=== PATIENT | female | born 1965 | race Caucasian/White ===

== ENCOUNTER 2024-10-22 08:44 | Day surgery (SDC) | payer OTHER, SELFPAY ==
[2024-10-05 10:33] VITALS: BMI 28.1
[2024-10-05 11:00] LABS: % Basophils 0.5 % (0-2); % Eosinophils 5.4 % (0-6); % Immature Granulocytes 0.2 % (0-0.5); % Lymphocytes 41.7 % (20.5-51.1); % Monocytes 10.9 % (1.7-9.3); % Neutrophils 41.3 % (42.2-75.2); Absolute Eosinophils 0.2 10^3/uL (0-0.7); Absolute Lymphocytes 1.7 10^3/uL (1.2-3.4); Absolute Monocytes 0.4 10^3/uL (0.1-0.6); Absolute Neutrophils 1.7 10^3/uL (1.4-6.5); Hemoglobin 13.7 g/dL (12.0-16.0); Mean Corp Hgb Conc. 33.4 g/dL (33.0-37.0); Mean Corpuscular Hgb 32.3 pg (27.0-31.0); Mean Corpuscular Volume 96.7 fL (81.0-99.0); Mean Platelet Volume 9.8 fL (7.4-10.4); Nucleated Red Blood Cells % 0 %; Platelet Count 212 10^3/uL (130-400); Red Blood Cell Count 4.24 10^6/uL (4.20-5.40); Red Cell Dist. Width 13.6 % (11.5-14.5); White Blood Cell Count 4.1 10^3/uL (4.8-10.8)
[2024-10-05 12:14] LABS: ALT (SGPT) 48 U/L (0-35); AST (SGOT) 38 U/L (14-36); Albumin 4.2 g/dl (3.5-5.0); Alkaline Phosphatase 73 U/L (38-126); Blood Urea Nitrogen 13 mg/dl (7-17); Calcium 9.1 mg/dl (8.4-10.2); Carbon Dioxide 28 mmol/L (22-30); Chloride 101 mmol/L (98-107); Estimated Creatinine Clearance 85 ml/min; Glucose 93 mg/dl (70-99); Magnesium 2.1 mg/dl (1.6-2.3); Potassium 5.3 mmol/L (3.5-5.1); Sodium 135 mmol/L (135-145); Total Bilirubin 0.6 mg/dl (0.2-1.3); Total Protein 7.2 g/dl (6.3-8.2); eGFR > 60.00
[2024-10-22] VITALS (14 sets, daily range): BP systolic 112–177; BP diastolic 71–95
[2024-10-22 12:45] LABS: ACT-LR - POC 207 Seconds (116-155)
[2024-10-22 13:04] LABS: ACT-LR - POC 316 Seconds (116-155)
[2024-10-22 13:34] LABS: ACT-LR - POC 347 Seconds (116-155)
[2024-10-22 13:45] LABS: ACT-LR - POC 147 Seconds (116-155)
--- NOTE | 2024-10-22 15:28 | ITS.CL.ABL ---
[facility] [employer] - Ablation
Ablation
Procedure Report:
Primary Physician: Erika Newton DO
Primary Oleomargarine Maker: Giles Lockhart MD
Procedure Date: 10/22/2024
Procedure
Electrophysiology Study with SVT ablation
Left atrial recording / pacing
IV drug for arrhythmia induction
Patient History
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
Patient noted to have SVT (appearing short RP tachycardia) on event monitor lasting roughly 1 hour with average heart rate 153 bpm, max 171 bpm.
Method
After informed consent was obtained, the patient was brought to the EP lab in a post-absorptive, non-sedated state. A peripheral IV was in place. Continuous electrocardiography, blood pressure and pulse oximetry monitoring was initiated and
cardioversion / defibrillator electrodes were positioned on the chest in an AP orientation. A 'time-out' was called. Conscious sedation was administered with the assistance of the anesthesia services, and local anesthesia was given at the femoral
vein access sites.
Using modified Seldinger technique, ultrasound-guided vascular access was achieved (images saved to record) and sheaths were placed. Multipolar catheters were advanced to the coronary sinus, His bundle recording position, and right ventricle. All
catheters and wires were advanced under fluoroscopy with careful monitoring of the IVC filter. Following the determination of baseline conduction intervals, comprehensive EP study was performed. Pacing and recording from the RA, RV, HBE, and CS /
LA was performed.
For arrhythmia details, see below.
Fluoroscopy time:
10.1 min; 22.57 mGy; DAP 2.92
Total RF time:
6 minutes 55 seconds; 11 lesions
Estimated Blood Loss
5 mL
Complications
None
At the end of the procedure, all catheters and sheaths were removed and hemostasis was assured with Vascade, manual pressure. Protamine was provided. The patient was returned to the recovery area in stable condition.
Access Sites:
Left Femoral Vein: 2 sheaths (7 Fr, 6 Fr)
Right Femoral Vein: 2 sheaths (9 Fr upsized to 11.5 Fr, 6 Fr)
Baseline Intervals:
Rhythm: Sinus rhythm
MA: 129 ms
AH: 79 ms
HV: 53 ms
QRS: 89 ms
QT: 394 ms
QTc: 352 ms
Post-Procedure Intervals:
MA: 175 ms
AH: 78 ms
HV: 49 ms
QRS: 98 ms
QT: 382 ms
QTc: 413 ms
AV Conduction:
- AVWB at 430 msec
- VAWB at 420 msec
Refractory Periods
- AVNERP 600/340 ms
� AERP 600/200 ms
Procedure Synopsis:
The patient entered the room in sinus rhythm. Following access and careful monitoring as noted above, catheters were placed at the the coronary sinus, His bundle, RV apex positions. RA catheter was not placed out of caution for passing more
catheters through IVC filter. Following baseline intervals, AV/VA Wenckebach was performed and documented. Para-Hisian pacing demonstrated a hilda response. Using CS proximal pacing, atrial drivetrain with single extrastimulus and decremental
fashion was performed. An AH jump was noted at 600/360 ms as well as 2 echo beats. No induction of tachycardia was noted. Sedation was reduced and isoproterenol was started. Repeat testing was performed with single extrastimulus. Again, AH jump
was noted with echo beats. Burst pacing performed at 370 ms which induced tachycardia. Tachycardia was characterized as in a�on�V tachycardia at 360 ms tachycardia cycle length. Ventricular overdrive pacing at 340 ms demonstrated a V�a�V response
with a PPI minus TCL greater than 115 ms, SA�VA time greater than 85 ms. 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 Heparin was given for ACT 300-400, short 9 Uzbek sheath was exchanged for an 11.5 Uzbek
steerable sheath. HD grid was advanced into the right atrium and right atrial electroanatomic map was performed in sinus rhythm. Slow pathway was identified electroanatomic mapping. HD grid was removed and Tacticath SE D/F irrigated catheter was
advanced in the right atrium. With careful monitoring of impedance, temperature, AV conduction, EGM, ablation was performed at 25 W with low flow at the area identified a slow pathway. EGM targeted 1: 3�1: 5A: V ratio. Following ablation within
this region, slow junctional beats were noted indicative of slow pathway modification. Repeat induction testing was performed and at burst pacing patient was noted to go into tachycardia with slower cycle length of 460 ms. Repeat ablation was once
more performed in similar region. Rising along the septum, no higher than mid level of coronary sinus ostium, fast junctional beats were noted during ablation. Ablation was stopped immediately. No loss of AV conduction or AH/HV prolongation was
noted. Repeat testing was performed without induction of arrhythmia. AH jump with echo beat was noted however tachycardia was not induced. Isoproterenol was restarted and testing was once more performed without induction of tachycardia. Testing
performed again at isoproterenol washout again no further induction of tachycardia. Catheters were removed under fluoroscopic guidance with careful monitoring of the IVC filter. IVC filter remained in place images stored. Protamine was provided
and hemostasis was noted above.
Recommendations
-Anticipate same-day discharge if patient meeting clinical metrics
- Bedrest with straight-leg precautions
- Continue home medications as indicated
� Reduce metoprolol to 25 mg daily
- Follow-up in office as scheduled
Johnnie Mae DO
Clinical Cardiac Electrophysiology
cc: Erika Newton DO; Giles Lockhart MD
== END 2024-10-22 17:20 | disposition home or self-care (01) ==
LOC: CATH 08:44
PROVIDERS: ATTENDING PHYSICIAN Internal Medicine Cardiovascular Disease; FAMILY PHYSICIAN Family Medicine; OTHER PHYSICIAN Internal Medicine
DX: I47.10 Supraventricular tachycardia, unspecified (principal); I10 Essential (primary) hypertension; Z86.718 Personal history of other venous thrombosis and embolism; R42 Dizziness and giddiness; R00.2 Palpitations; Z87.891 Personal history of nicotine dependence; K21.9 Gastro-esophageal reflux disease without esophagitis; G47.00 Insomnia, unspecified; Z79.899 Other long term (current) drug therapy
CPT/HCPCS: C1732; C1730; C1894; C1766; C2630; C1892; 36415; 76937; 80053; 83735; 85025; 85347; 93005; 93623; 93653; C1760